=== PATIENT | male | born 1945 | race African-American/Black ===

== ENCOUNTER 2020-10-05 19:14 | Inpatient (IN) | payer OTHER ==
[2020-10-05] MEDS ORDERED: Polyethylene Glycol 3350 17 GM Packet PER TUBE PRN (23:37)
[2020-10-05] MEDS ORDERED: Pancrelipase DR 12,000 1 CAP FS PRN (23:45)
[2020-10-05] MEDS ORDERED: Sodium Bicarbonate Tab 325 MG TAB PER TUBE PRN (23:45)
[2020-10-06 05:24] LABS: #Basophils 0.1 thou/uL (0.0-0.2); #Eosinphils 0.1 thou/uL (0.0-0.7); #Lymphocytes 1.7 thou/uL (1.20-3.40); #Monocytes 0.4 thou/uL (0.11-0.59); #Neutrophils 2.5 thou/uL (1.40-6.50); %Basophils 2.1 % (0.0-1.0); %Eosinophils 2.4 % (0.0-10.0); %Lymphocytes 35.7 % (21.0-51.0); %Neutrophils 51.8 % (42.0-75.0); Hemoglobin 10.9 g/dL (14.0-18.0); MDiff Complete? YES; Mean Corpuscular HGB CONC 31.8 g/dL (32.0-36.0); Mean Corpuscular Hemoglobin 25.7 pg (27.0-31.0); Mean Corpuscular Volume 80.6 fL (78.0-98.0); Mean Platelet Volume 7.6 fL (7.4-10.4); Platelet Count 86 thou/uL (130-400); Platelet Morphology Comment PLT clumps seen-LOW; RBC Distribution Width 13.6 % (11.5-14.5); Red Blood Cell (RBC) Count 4.24 mill/uL (4.70-6.10); White Blood Cell (WBC) Count 4.9 thou/uL (4.8-10.8)
[2020-10-06 05:30] LABS: ALT (SGPT) 17 U/L (8-55); AST (SGOT) 18 U/L (5-34); Albumin 3.4 g/dL (3.4-4.8); Alkaline Phosphatase 54 U/L (40-110); Anion Gap 14 mmol/L (10-20); BUN (Urea Nitrogen) 27 mg/dL (8.4-25.7); Bilirubin, Total 0.3 mg/dL (0.2-1.2); Calc. Creatinine Clearance 67 mL/min (70-130); Carbon Dioxide 28 mmol/L (23-31); Chloride 99 mmol/L (98-107); Globulin 2.8 g/dL (2.4-3.5); Glucose 82 mg/dL (83-110); Potassium 4.6 mmol/L (3.5-5.1); Protein, Total 6.2 g/dL (5.8-8.1); Sodium 136 mmol/L (136-145)
[2020-10-06 05:47] LABS: SARS-CoV-2 NAA Rapid Test Not Detected (NotDetected)
[2020-10-06] MEDS: Tamsulosin HCl 0.4 MG CAP PO SCH ×2 (08:38→21:04)
[2020-10-06] MEDS: Metoprolol Tartrate 50 MG TAB PER TUBE SCH ×2 (08:38→21:03)
[2020-10-06] MEDS: levETIRAcetam 500 mg/5 ml Oral Solution PER TUBE SCH ×2 (08:38→21:03)
[2020-10-06] MEDS: Carbidopa/Levodopa 25-100 mg Tablet PER TUBE SCH ×3 (08:38→21:05)
[2020-10-06] MEDS ORDERED: Fluconazole 100 MG TAB PER TUBE SCH (12:45)
[2020-10-06] MEDS: Nystatin 500,000 UNITS/5 ML UDCUP PO SCH (21:04)
[2020-10-07] MEDS: Fluconazole 100 MG TAB PER TUBE SCH (08:13)
[2020-10-07] MEDS: Tamsulosin HCl 0.4 MG CAP PO SCH ×2 (08:13→20:32)
[2020-10-07] MEDS: Carbidopa/Levodopa 25-100 mg Tablet PER TUBE SCH ×3 (08:13→20:33)
[2020-10-07] MEDS: Nystatin 500,000 UNITS/5 ML UDCUP PO SCH ×2 (08:13→20:30)
[2020-10-07] MEDS: levETIRAcetam 500 mg/5 ml Oral Solution PER TUBE SCH ×2 (08:13→20:32)
[2020-10-07] MEDS: Polyethylene Glycol 3350 17 GM Packet PER TUBE SCH (08:14)
[2020-10-07] MEDS: Metoprolol Tartrate 50 MG TAB PER TUBE SCH ×2 (08:14→20:25)
[2020-10-08] MEDS: Nystatin 500,000 UNITS/5 ML UDCUP PO SCH ×2 (08:21→20:17)
[2020-10-08] MEDS: Tamsulosin HCl 0.4 MG CAP PO SCH ×2 (08:21→20:17)
[2020-10-08] MEDS: Fluconazole 100 MG TAB PER TUBE SCH (08:21)
[2020-10-08] MEDS: Carbidopa/Levodopa 25-100 mg Tablet PER TUBE SCH ×3 (08:21→20:17)
[2020-10-08] MEDS: Polyethylene Glycol 3350 17 GM Packet PER TUBE SCH (08:21)
[2020-10-08] MEDS: levETIRAcetam 500 mg/5 ml Oral Solution PER TUBE SCH ×2 (08:21→20:17)
[2020-10-08] MEDS: Metoprolol Tartrate 50 MG TAB PER TUBE SCH ×2 (08:22→20:17)
[2020-10-09] MEDS: Polyethylene Glycol 3350 17 GM Packet PER TUBE SCH (08:25)
[2020-10-09] MEDS: Carbidopa/Levodopa 25-100 mg Tablet PER TUBE SCH ×3 (08:25→20:46)
[2020-10-09] MEDS: Tamsulosin HCl 0.4 MG CAP PO SCH ×2 (08:25→20:46)
[2020-10-09] MEDS: Nystatin 500,000 UNITS/5 ML UDCUP PO SCH ×2 (08:25→20:50)
[2020-10-09] MEDS: levETIRAcetam 500 mg/5 ml Oral Solution PER TUBE SCH ×2 (08:25→20:45)
[2020-10-09] MEDS: Metoprolol Tartrate 50 MG TAB PER TUBE SCH ×2 (08:27→20:45)
[2020-10-09] MEDS: Fluconazole 100 MG TAB PER TUBE SCH (08:27)
[2020-10-10] MEDS: Carbidopa/Levodopa 25-100 mg Tablet PER TUBE SCH ×3 (09:14→20:54)
[2020-10-10] MEDS: Metoprolol Tartrate 50 MG TAB PER TUBE SCH ×2 (09:14→20:54)
[2020-10-10] MEDS: levETIRAcetam 500 mg/5 ml Oral Solution PER TUBE SCH ×2 (09:14→20:53)
[2020-10-10] MEDS: Fluconazole 100 MG TAB PER TUBE SCH (09:14)
[2020-10-10] MEDS: Nystatin 500,000 UNITS/5 ML UDCUP PO SCH ×2 (09:15→20:54)
[2020-10-10] MEDS: Polyethylene Glycol 3350 17 GM Packet PER TUBE SCH (09:15)
[2020-10-10] MEDS: Tamsulosin HCl 0.4 MG CAP PO SCH ×2 (09:16→20:53)
[2020-10-11] MEDS: Carbidopa/Levodopa 25-100 mg Tablet PER TUBE SCH ×3 (09:08→21:06)
[2020-10-11] MEDS: Metoprolol Tartrate 50 MG TAB PER TUBE SCH (09:08)
[2020-10-11] MEDS: levETIRAcetam 500 mg/5 ml Oral Solution PER TUBE SCH ×2 (09:08→21:05)
[2020-10-11] MEDS: Nystatin 500,000 UNITS/5 ML UDCUP PO SCH ×2 (09:08→21:06)
[2020-10-11] MEDS: Tamsulosin HCl 0.4 MG CAP PO SCH ×2 (09:08→21:06)
[2020-10-11] MEDS: Fluconazole 100 MG TAB PER TUBE SCH (09:08)
[2020-10-11] MEDS: Polyethylene Glycol 3350 17 GM Packet PER TUBE SCH (09:08)
[2020-10-11] MEDS: Metoprolol Tartrate 25 MG TAB PER TUBE SCH (21:06)
[2020-10-12] MEDS: Carbidopa/Levodopa 25-100 mg Tablet PER TUBE SCH ×3 (09:14→21:13)
[2020-10-12] MEDS: Fluconazole 100 MG TAB PER TUBE SCH (09:14)
[2020-10-12] MEDS: Tamsulosin HCl 0.4 MG CAP PO SCH ×2 (09:14→21:13)
[2020-10-12] MEDS: Metoprolol Tartrate 25 MG TAB PER TUBE SCH ×2 (09:14→21:13)
[2020-10-12] MEDS: Polyethylene Glycol 3350 17 GM Packet PER TUBE SCH (09:15)
[2020-10-12] MEDS: levETIRAcetam 500 mg/5 ml Oral Solution PER TUBE SCH ×2 (09:15→21:12)
[2020-10-12] MEDS: Nystatin 500,000 UNITS/5 ML UDCUP PO SCH ×2 (09:15→21:12)
[2020-10-13] MEDS: Carbidopa/Levodopa 25-100 mg Tablet PER TUBE SCH ×3 (08:11→21:34)
[2020-10-13] MEDS: levETIRAcetam 500 mg/5 ml Oral Solution PER TUBE SCH ×2 (08:11→21:32)
[2020-10-13] MEDS: Nystatin 500,000 UNITS/5 ML UDCUP PO SCH ×2 (08:11→21:32)
[2020-10-13] MEDS: Tamsulosin HCl 0.4 MG CAP PO SCH ×2 (08:11→21:31)
[2020-10-13] MEDS: Metoprolol Tartrate 25 MG TAB PER TUBE SCH ×2 (08:11→21:31)
[2020-10-13] MEDS: Polyethylene Glycol 3350 17 GM Packet PER TUBE SCH (08:12)
[2020-10-13 14:09] LABS: SARS-CoV-2 PCR by NAA Not Detected (NotDetected)
[2020-10-14] MEDS: Carbidopa/Levodopa 25-100 mg Tablet PER TUBE SCH ×3 (08:34→21:43)
[2020-10-14] MEDS: levETIRAcetam 500 mg/5 ml Oral Solution PER TUBE SCH ×2 (08:34→21:43)
[2020-10-14] MEDS: Tamsulosin HCl 0.4 MG CAP PO SCH ×2 (08:35→21:43)
[2020-10-14] MEDS: Metoprolol Tartrate 25 MG TAB PER TUBE SCH ×2 (08:35→21:43)
[2020-10-14] MEDS: Polyethylene Glycol 3350 17 GM Packet PER TUBE SCH (08:35)
[2020-10-15] MEDS: levETIRAcetam 500 mg/5 ml Oral Solution PER TUBE SCH ×2 (08:52→20:49)
[2020-10-15] MEDS: Tamsulosin HCl 0.4 MG CAP PO SCH ×2 (08:52→20:48)
[2020-10-15] MEDS: Carbidopa/Levodopa 25-100 mg Tablet PER TUBE SCH ×3 (08:52→20:48)
[2020-10-15] MEDS: Metoprolol Tartrate 25 MG TAB PER TUBE SCH ×2 (08:52→20:48)
[2020-10-16] MEDS: Metoprolol Tartrate 25 MG TAB PER TUBE SCH ×2 (08:48→21:41)
[2020-10-16] MEDS: Tamsulosin HCl 0.4 MG CAP PO SCH ×2 (08:48→21:41)
[2020-10-16] MEDS: Carbidopa/Levodopa 25-100 mg Tablet PER TUBE SCH ×3 (08:48→21:41)
[2020-10-16] MEDS: levETIRAcetam 500 mg/5 ml Oral Solution PER TUBE SCH ×2 (08:48→21:41)
[2020-10-17] MEDS: Tamsulosin HCl 0.4 MG CAP PO SCH ×2 (08:09→21:49)
[2020-10-17] MEDS: levETIRAcetam 500 mg/5 ml Oral Solution PER TUBE SCH ×2 (08:09→21:49)
[2020-10-17] MEDS: Metoprolol Tartrate 25 MG TAB PER TUBE SCH ×2 (08:09→21:49)
[2020-10-17] MEDS: Carbidopa/Levodopa 25-100 mg Tablet PER TUBE SCH ×3 (08:10→21:49)
[2020-10-18] MEDS: Tamsulosin HCl 0.4 MG CAP PO SCH ×2 (08:44→20:01)
[2020-10-18] MEDS: Metoprolol Tartrate 25 MG TAB PER TUBE SCH ×2 (08:44→20:00)
[2020-10-18] MEDS: Carbidopa/Levodopa 25-100 mg Tablet PER TUBE SCH ×3 (08:44→20:00)
[2020-10-18] MEDS: levETIRAcetam 500 mg/5 ml Oral Solution PER TUBE SCH ×2 (08:44→20:00)
[2020-10-19] MEDS: Metoprolol Tartrate 25 MG TAB PER TUBE SCH ×2 (08:22→21:52)
[2020-10-19] MEDS: levETIRAcetam 500 mg/5 ml Oral Solution PER TUBE SCH ×2 (08:22→21:52)
[2020-10-19] MEDS: Tamsulosin HCl 0.4 MG CAP PO SCH ×2 (08:22→21:52)
[2020-10-19] MEDS: Carbidopa/Levodopa 25-100 mg Tablet PER TUBE SCH ×3 (08:22→21:52)
[2020-10-20] MEDS: Carbidopa/Levodopa 25-100 mg Tablet PER TUBE SCH ×3 (09:28→21:01)
[2020-10-20] MEDS: Metoprolol Tartrate 25 MG TAB PER TUBE SCH ×2 (09:28→21:01)
[2020-10-20] MEDS: Tamsulosin HCl 0.4 MG CAP PO SCH ×2 (09:28→21:01)
[2020-10-20] MEDS: levETIRAcetam 500 mg/5 ml Oral Solution PER TUBE SCH ×2 (09:28→21:01)
[2020-10-21 05:27] LABS: #Eosinphils 0.2 thou/uL (0.0-0.7); #Lymphocytes 1.2 thou/uL (1.20-3.40); #Monocytes 0.3 thou/uL (0.11-0.59); %Basophils 1.3 % (0.0-1.0); %Eosinophils 5.1 % (0.0-10.0); %Lymphocytes 31.5 % (21.0-51.0); %Monocytes 8.2 % (0.0-10.0); %Neutrophils 53.9 % (42.0-75.0); Hemoglobin 9.8 g/dL (14.0-18.0); Mean Corpuscular HGB CONC 31.2 g/dL (32.0-36.0); Mean Corpuscular Volume 83.4 fL (78.0-98.0); Mean Platelet Volume 7.1 fL (7.4-10.4); Platelet Count 128 thou/uL (130-400); Red Blood Cell (RBC) Count 3.78 mill/uL (4.70-6.10); White Blood Cell (WBC) Count 3.7 thou/uL (4.8-10.8)
[2020-10-21 05:45] LABS: ALT (SGPT) 8 U/L (8-55); AST (SGOT) 13 U/L (5-34); Albumin 3.1 g/dL (3.4-4.8); Alkaline Phosphatase 57 U/L (40-110); Anion Gap 10 mmol/L (10-20); BUN (Urea Nitrogen) 23 mg/dL (8.4-25.7); Bilirubin, Total 0.3 mg/dL (0.2-1.2); Calc. Creatinine Clearance 69 mL/min (70-130); Calcium 8.9 mg/dL (7.8-10.44); Carbon Dioxide 27 mmol/L (23-31); Chloride 106 mmol/L (98-107); Globulin 2.6 g/dL (2.4-3.5); Glucose 82 mg/dL (83-110); Protein, Total 5.7 g/dL (5.8-8.1); Sodium 139 mmol/L (136-145)
[2020-10-21] MEDS: Metoprolol Tartrate 25 MG TAB PER TUBE SCH ×2 (08:40→21:15)
[2020-10-21] MEDS: Tamsulosin HCl 0.4 MG CAP PO SCH ×2 (08:40→21:14)
[2020-10-21] MEDS: Carbidopa/Levodopa 25-100 mg Tablet PER TUBE SCH ×3 (08:40→21:15)
[2020-10-21] MEDS: levETIRAcetam 500 mg/5 ml Oral Solution PER TUBE SCH ×2 (08:40→21:14)
[2020-10-22 03:44] LABS: SARS-CoV-2 PCR by NAA Not Detected (NotDetected)
[2020-10-22] MEDS: Metoprolol Tartrate 25 MG TAB PER TUBE SCH ×2 (08:01→20:50)
[2020-10-22] MEDS: levETIRAcetam 500 mg/5 ml Oral Solution PER TUBE SCH ×2 (08:01→20:49)
[2020-10-22] MEDS: Carbidopa/Levodopa 25-100 mg Tablet PER TUBE SCH ×3 (08:01→20:49)
[2020-10-22] MEDS: Tamsulosin HCl 0.4 MG CAP PO SCH ×2 (08:02→20:50)
[2020-10-23] MEDS: levETIRAcetam 500 mg/5 ml Oral Solution PER TUBE SCH ×2 (09:36→21:40)
[2020-10-23] MEDS: Metoprolol Tartrate 25 MG TAB PER TUBE SCH ×2 (09:36→21:40)
[2020-10-23] MEDS: Carbidopa/Levodopa 25-100 mg Tablet PER TUBE SCH ×3 (09:36→21:40)
[2020-10-23] MEDS: Tamsulosin HCl 0.4 MG CAP PO SCH ×2 (09:36→21:40)
[2020-10-24] MEDS: Carbidopa/Levodopa 25-100 mg Tablet PER TUBE SCH ×3 (09:34→20:34)
[2020-10-24] MEDS: Tamsulosin HCl 0.4 MG CAP PO SCH ×2 (09:34→20:34)
[2020-10-24] MEDS: Metoprolol Tartrate 25 MG TAB PER TUBE SCH ×2 (09:34→20:34)
[2020-10-24] MEDS: levETIRAcetam 500 mg/5 ml Oral Solution PER TUBE SCH ×2 (09:34→20:34)
[2020-10-25] MEDS: levETIRAcetam 500 mg/5 ml Oral Solution PER TUBE SCH ×2 (08:27→20:54)
[2020-10-25] MEDS: Carbidopa/Levodopa 25-100 mg Tablet PER TUBE SCH ×3 (08:27→20:54)
[2020-10-25] MEDS: Metoprolol Tartrate 25 MG TAB PER TUBE SCH ×2 (08:27→20:55)
[2020-10-25] MEDS: Tamsulosin HCl 0.4 MG CAP PO SCH ×2 (08:27→20:55)
[2020-10-26] MEDS: Tamsulosin HCl 0.4 MG CAP PO SCH ×2 (08:01→20:22)
[2020-10-26] MEDS: Carbidopa/Levodopa 25-100 mg Tablet PER TUBE SCH ×3 (08:01→20:22)
[2020-10-26] MEDS: levETIRAcetam 500 mg/5 ml Oral Solution PER TUBE SCH ×2 (08:01→20:22)
[2020-10-26] MEDS: Metoprolol Tartrate 25 MG TAB PER TUBE SCH ×2 (08:01→20:22)
[2020-10-27] MEDS: Metoprolol Tartrate 25 MG TAB PER TUBE SCH ×2 (08:36→20:00)
[2020-10-27] MEDS: levETIRAcetam 500 mg/5 ml Oral Solution PER TUBE SCH ×2 (08:36→20:00)
[2020-10-27] MEDS: Carbidopa/Levodopa 25-100 mg Tablet PER TUBE SCH ×3 (08:36→20:00)
[2020-10-27] MEDS: Tamsulosin HCl 0.4 MG CAP PO SCH ×2 (08:36→20:00)
[2020-10-28] MEDS: Metoprolol Tartrate 25 MG TAB PER TUBE SCH ×2 (08:54→20:16)
[2020-10-28] MEDS: Tamsulosin HCl 0.4 MG CAP PO SCH ×2 (08:54→20:16)
[2020-10-28] MEDS: Carbidopa/Levodopa 25-100 mg Tablet PER TUBE SCH ×3 (08:54→20:15)
[2020-10-28] MEDS: levETIRAcetam 500 mg/5 ml Oral Solution PER TUBE SCH ×2 (08:54→20:15)
[2020-10-29] MEDS: Metoprolol Tartrate 25 MG TAB PER TUBE SCH ×2 (08:46→20:37)
[2020-10-29] MEDS: Tamsulosin HCl 0.4 MG CAP PO SCH ×2 (08:46→20:37)
[2020-10-29] MEDS: Carbidopa/Levodopa 25-100 mg Tablet PER TUBE SCH ×3 (08:46→20:37)
[2020-10-29] MEDS: levETIRAcetam 500 mg/5 ml Oral Solution PER TUBE SCH ×2 (08:46→20:36)
[2020-10-30] MEDS: levETIRAcetam 500 mg/5 ml Oral Solution PER TUBE SCH ×2 (08:23→21:47)
[2020-10-30] MEDS: Metoprolol Tartrate 25 MG TAB PER TUBE SCH ×2 (08:23→21:47)
[2020-10-30] MEDS: Carbidopa/Levodopa 25-100 mg Tablet PER TUBE SCH ×3 (08:23→21:47)
[2020-10-30] MEDS: Tamsulosin HCl 0.4 MG CAP PO SCH ×2 (08:23→21:47)
[2020-10-31 00:14] LABS: SARS-CoV-2 PCR by NAA Not Detected (NotDetected)
[2020-10-31] MEDS: Tamsulosin HCl 0.4 MG CAP PO SCH ×2 (08:42→21:24)
[2020-10-31] MEDS: levETIRAcetam 500 mg/5 ml Oral Solution PER TUBE SCH ×2 (08:42→21:24)
[2020-10-31] MEDS: Carbidopa/Levodopa 25-100 mg Tablet PER TUBE SCH ×3 (08:42→21:24)
[2020-10-31] MEDS: Metoprolol Tartrate 25 MG TAB PER TUBE SCH ×2 (08:42→21:24)
[2020-11-01] MEDS: Tamsulosin HCl 0.4 MG CAP PO SCH ×2 (08:50→20:34)
[2020-11-01] MEDS: Carbidopa/Levodopa 25-100 mg Tablet PER TUBE SCH ×3 (08:50→20:34)
[2020-11-01] MEDS: levETIRAcetam 500 mg/5 ml Oral Solution PER TUBE SCH ×2 (08:50→20:34)
[2020-11-01] MEDS: Metoprolol Tartrate 25 MG TAB PER TUBE SCH ×2 (08:50→20:34)
[2020-11-02] MEDS: Metoprolol Tartrate 25 MG TAB PER TUBE SCH ×2 (09:26→21:39)
[2020-11-02] MEDS: Carbidopa/Levodopa 25-100 mg Tablet PER TUBE SCH ×3 (09:26→21:39)
[2020-11-02] MEDS: Tamsulosin HCl 0.4 MG CAP PO SCH ×2 (09:26→21:39)
[2020-11-02] MEDS: levETIRAcetam 500 mg/5 ml Oral Solution PER TUBE SCH ×2 (09:26→21:39)
[2020-11-03] MEDS: levETIRAcetam 500 mg/5 ml Oral Solution PER TUBE SCH ×2 (09:07→22:11)
[2020-11-03] MEDS: Carbidopa/Levodopa 25-100 mg Tablet PER TUBE SCH ×3 (09:07→22:11)
[2020-11-03] MEDS: Metoprolol Tartrate 25 MG TAB PER TUBE SCH ×2 (09:07→22:11)
[2020-11-03] MEDS: Tamsulosin HCl 0.4 MG CAP PO SCH ×2 (09:07→22:11)
[2020-11-04] MEDS: Tamsulosin HCl 0.4 MG CAP PO SCH ×2 (09:05→22:43)
[2020-11-04] MEDS: levETIRAcetam 500 mg/5 ml Oral Solution PER TUBE SCH ×2 (09:05→22:43)
[2020-11-04] MEDS: Carbidopa/Levodopa 25-100 mg Tablet PER TUBE SCH ×3 (09:05→22:43)
[2020-11-04] MEDS: Metoprolol Tartrate 25 MG TAB PER TUBE SCH ×2 (09:05→22:43)
[2020-11-05] MEDS: Metoprolol Tartrate 25 MG TAB PER TUBE SCH ×2 (08:14→21:38)
[2020-11-05] MEDS: Carbidopa/Levodopa 25-100 mg Tablet PER TUBE SCH ×3 (08:14→21:38)
[2020-11-05] MEDS: levETIRAcetam 500 mg/5 ml Oral Solution PER TUBE SCH ×2 (08:14→21:38)
[2020-11-05] MEDS: Tamsulosin HCl 0.4 MG CAP PO SCH ×2 (08:14→21:38)
[2020-11-06] MEDS: Carbidopa/Levodopa 25-100 mg Tablet PER TUBE SCH ×3 (09:23→22:13)
[2020-11-06] MEDS: Tamsulosin HCl 0.4 MG CAP PO SCH ×2 (09:23→22:14)
[2020-11-06] MEDS: Metoprolol Tartrate 25 MG TAB PER TUBE SCH ×2 (09:23→22:13)
[2020-11-06] MEDS: levETIRAcetam 500 mg/5 ml Oral Solution PER TUBE SCH ×2 (09:23→22:13)
[2020-11-07] MEDS: Carbidopa/Levodopa 25-100 mg Tablet PER TUBE SCH ×3 (09:06→20:57)
[2020-11-07] MEDS: Metoprolol Tartrate 25 MG TAB PER TUBE SCH ×2 (09:06→20:57)
[2020-11-07] MEDS: Tamsulosin HCl 0.4 MG CAP PO SCH ×2 (09:06→20:57)
[2020-11-07] MEDS: levETIRAcetam 500 mg/5 ml Oral Solution PER TUBE SCH ×2 (09:06→20:57)
[2020-11-07 18:15] LABS: SARS-CoV-2 PCR by NAA Not Detected (NotDetected)
[2020-11-08] MEDS: Metoprolol Tartrate 25 MG TAB PER TUBE SCH ×2 (08:39→22:14)
[2020-11-08] MEDS: Tamsulosin HCl 0.4 MG CAP PO SCH ×2 (08:39→22:14)
[2020-11-08] MEDS: levETIRAcetam 500 mg/5 ml Oral Solution PER TUBE SCH ×2 (08:39→22:15)
[2020-11-08] MEDS: Carbidopa/Levodopa 25-100 mg Tablet PER TUBE SCH ×3 (08:39→22:14)
[2020-11-08 21:55] VITALS: BMI 20.1
[2020-11-09] MEDS: Tamsulosin HCl 0.4 MG CAP PO SCH ×2 (08:08→20:43)
[2020-11-09] MEDS: levETIRAcetam 500 mg/5 ml Oral Solution PER TUBE SCH ×2 (08:08→20:43)
[2020-11-09] MEDS: Carbidopa/Levodopa 25-100 mg Tablet PER TUBE SCH ×3 (08:08→20:42)
[2020-11-09] MEDS: Metoprolol Tartrate 25 MG TAB PER TUBE SCH ×2 (08:08→20:43)
[2020-11-10] MEDS: Metoprolol Tartrate 25 MG TAB PER TUBE SCH (08:32)
[2020-11-10] MEDS: Tamsulosin HCl 0.4 MG CAP PO SCH (08:32)
[2020-11-10] MEDS: levETIRAcetam 500 mg/5 ml Oral Solution PER TUBE SCH (08:32)
[2020-11-10] MEDS: Carbidopa/Levodopa 25-100 mg Tablet PER TUBE SCH ×2 (08:34→14:57)
[2020-11-10 19:30] VITALS: BP 152/85; TEMP 97
== END 2020-11-10 19:15 | disposition home or self-care (01) | DRG 948 ==
LOC: MADMS 20:50
PROVIDERS: ADMIT Family Medicine; ATTEND Family Medicine
DX: R53.1 Weakness (principal); R13.12 Dysphagia, oropharyngeal phase; G20 Parkinson's disease; I10 Essential (primary) hypertension; N40.0 Benign prostatic hyperplasia without lower urinary tract symptoms; K59.00 Constipation, unspecified; M24.542 Contracture, left hand; G40.909 Epilepsy, unspecified, not intractable, without status epilepticus; Z20.822 Contact with and (suspected) exposure to COVID-19; R19.7 Diarrhea, unspecified
CPT/HCPCS: 36415; 36416; 80053; 85025; U0002; U0003; U0005

== ENCOUNTER 2022-12-25 19:12 | Emergency (ER) | payer MEDICARE ==
[2022-12-25 19:56] LABS: #Basophils 0.1 thou/uL (0.0-0.2); #Eosinphils 0.1 thou/uL (0.0-0.7); #Lymphocytes 0.9 thou/uL (1.20-3.40); #Monocytes 0.3 thou/uL (0.11-0.59); #Neutrophils 4.3 thou/uL (1.40-6.50); %Eosinophils 2.2 % (0.0-10.0); %Lymphocytes 15.5 % (21.0-51.0); %Monocytes 4.7 % (0.0-10.0); %Neutrophils 76.6 % (42.0-75.0); Hematocrit 33.9 % (42.0-52.0); Hemoglobin 10.9 g/dL (14.0-18.0); Mean Corpuscular HGB CONC 32.1 g/dL (32.0-36.0); Mean Corpuscular Hemoglobin 26.2 pg (27.0-31.0); Mean Corpuscular Volume 81.9 fl (78.0-98.0); Mean Platelet Volume 6.8 fL (7.4-10.4); Platelet Count 174 10x3/uL (130-400); RBC Distribution Width 15.8 % (11.5-14.5); Red Blood Cell (RBC) Count 4.15 mill/uL (4.70-6.10); White Blood Cell (WBC) Count 5.6 10x3/uL (4.8-10.8)
[2022-12-25 20:09] LABS: Base Excess-Venous 1.1 mmol/L (-2.0 to 3.0); Bicarbonate (HCO3v) 23.9 mmol/L (22.0-28.0); CO2 Tension (PvCO2) 31.4 mmHg (42.0-51.0); Chloride 103 mmol/L (98-107); Hemoglobin - Calc 11.9 g/dL (14.0-18.0); Potassium 4.2 mmol/L (3.5-5.1); Sodium 139 mmol/L (138-145); T. Carbon Dioxide 24.9 mmol/L (22.0-28.0); vO2 Saturation-calc 99.3 % (60.0-85.0)
[2022-12-25 20:11] LABS: Troponin I 0.047 ng/mL (< 0.028)
[2022-12-25 20:12] LABS: ALT (SGPT) 8 U/L (8-55); AST (SGOT) 14 U/L (5-34); Alkaline Phosphatase 58 U/L (40-110); Anion Gap 16 mmol/L (10-20); BUN (Urea Nitrogen) 21 mg/dL (8.4-25.7); Bilirubin, Total 0.4 mg/dL (0.2-1.2); Calc. Creatinine Clearance 0 mL/min (70-130); Calcium 8.2 mg/dL (7.8-10.44); Carbon Dioxide 21 mmol/L (23-31); Chloride 103 mmol/L (98-107); Estimated GFR 94; Globulin 3.2 g/dL (2.4-3.5); Glucose 96 mg/dL (83-110); Lipase 14 U/L (8-78); Magnesium 1.9 mg/dL (1.6-2.6); Potassium 4.2 mmol/L (3.5-5.1); Protein, Total 6.2 g/dL (5.8-8.1); Sodium 136 mmol/L (136-145)
[2022-12-25] MEDS ORDERED: Sodium Chloride 0.9% 100 ML ONE (20:25)
[2022-12-25] MEDS ORDERED: Piperacillin/Tazobactam 3.375 GM VIAL ONE (20:25)
[2022-12-25] MEDS ORDERED: Sodium Chloride 0.9% 250 ML 250 ML ONE (20:26)
[2022-12-25] MEDS ORDERED: Vancomycin 1 GM VIAL ONE (20:26)
[2022-12-25 20:53] LABS: SARS-CoV-2 NAA Rapid Test Not Detected (NotDetected)
[2022-12-26 00:48] LABS: Troponin I 0.053 ng/mL (< 0.028)
[2022-12-26 01:00] LABS: Bilirubin Negative (Negative); Blood, Urine Moderate (Negative); Clarity Turbid (Clear); Glucose, Urine (Dipstick) Negative (Negative); Ketone, Urine Negative (Negative); Leukocyte Large (Negative); Nitrite Negative (Negative); Protein, Urine (Dipstick) Trace mg/dL (Neg-Trace); Urobilinogen 0.2 mg/dL (Less than 2)
[2022-12-26 01:01] LABS: Bacteria/HPF 2+ HPF (None Seen); CAUTI Indications for Culture Alt mental st,lethar; Calcium Oxalate Crystals 1+ HPF (None Seen); WBC/HPF Greater than 50 HPF (0-3); Yeast-Budding 3+ HPF (None Seen)
[2022-12-26 01:02] LABS: Urine Culture Reflex Yes Yes
[2022-12-26] MEDS ORDERED: Sodium Chloride 0.9% 500 ML ONE (03:40)
[2022-12-26] MEDS ORDERED: Piperacillin/Tazobactam 4.5 GM VIAL ONE (05:19)
[2022-12-26] MEDS ORDERED: Sodium Chloride 0.9% 100 ML ONE (05:19)
[2022-12-26 05:29] LABS: Troponin I 0.052 ng/mL (< 0.028)
== END 2022-12-26 08:31 | disposition short-term general hospital (02) ==
LOC: MADERS 19:12
DX: J18.9 Pneumonia, unspecified organism (principal); J47.9 Bronchiectasis, uncomplicated; N39.0 Urinary tract infection, site not specified; R77.8 Other specified abnormalities of plasma proteins; R53.1 Weakness; I10 Essential (primary) hypertension; G20.A1 Parkinson's disease without dyskinesia, without mention of fluctuations; Z20.822 Contact with and (suspected) exposure to COVID-19; Z79.899 Other long term (current) drug therapy
CPT/HCPCS: 51702; 70450; 71045; 71260; 74177; 80053; 81001; 82330; 82435; 82803; 83605; 83690; 83735; 83880; 84132; 84295; 84484 ×2; 85014; 85025; 87040; 87086; 87804 ×2; 87807; 93005; 96365; 96366; 96367; 99285; U0002; 36415; 82274; J2543; J3370; J3490; J7030; J7050